=== PATIENT | male | born 1985 | race Caucasian/White ===

== ENCOUNTER 2018-09-08 19:57 | Emergency (ER) | payer MEDICAID, OTHER ==
[~2018-09-08] VITALS: Ht 167.6 cm; Wt 54.4 kg
--- NOTE | 2018-09-08 20:00 | NUR ---
Patient to ER bed 2 to gown for evaluation. Side rails up. Report given to iván.
[2018-09-08 20:01] VITALS: BP_SYST 145
--- NOTE | 2018-09-08 20:05 | NUR ---
Patient arrived via EMS for c/o seizures. Patient was getting into his car when he experienced a seizure. Patient thinks he lost consciousness. Patient has a history of seizures. Last seizre was 2 years ago. Patient non-compliant with seizure medications at home. VSS. Lenora pain, chest pain, SOB.
--- NOTE | 2018-09-08 20:08 | NUR ---
Note undone in EDM - 09/08/18 at 2020 by MARISEL Pt came in ED C/O upper RQ pain -01/19 upon inspirition, pt states she did go to the gym and performed some exercises related to the specific area. She does workout at the gym regularly. No other injuries and complaints noted VSS No s/s of acute distress. Resting on gurney with rails up
--- NOTE | 2018-09-08 20:08 | NUR ---
ER Dr. Henry at bedside examining patient.
[2018-09-08] MEDS ORDERED: LORazepam 2 MG/ML VIAL (FOR ER USE) IVP ONE (20:15)
[2018-09-08 20:44] LABS: CALCIUM 8.7 mg/dL (8.4-11.0); CREATININE 0.86 mg/dL (0.55-1.30); POTASSIUM 3.8 mmol/L (3.5-5.1)
[2018-09-08 20:49] LABS: ALBUMIN 3.7 g/dL (3.4-4.8)
[2018-09-08 21:18] VITALS: BP_SYST 145
--- NOTE | 2018-09-08 21:19 | NUR ---
Patient given written and verbal discharge instructions and verbalizes understanding. ER MD discussed with patient the results and treatment provided. Patient in stable condition. ID arm band removed. IV catheter removed intact and dressing applied, no active bleeding. Rx of ATIVAN given. Patient educated on pain management and to follow up with PMD. Pain Scale 0/10. Opportunity for questions provided and answered. Medication side effect fact sheet provided.
== END 2018-09-08 21:19 | disposition home or self-care (01) ==
LOC: SED 19:57
DX: F10.239 Alcohol dependence with withdrawal, unspecified (principal); R03.0 Elevated blood-pressure reading, without diagnosis of hypertension
CPT/HCPCS: 36415; 80053; 96374; 99283; J2060

== ENCOUNTER 2019-06-22 15:52 | Emergency (ER) | payer MEDICAID ==
[~2019-06-22] VITALS: Ht 177.8 cm; Wt 54.4 kg
[2019-06-22 16:20] VITALS: BP_SYST 121
[2019-06-22 17:52] LABS: HEMATOCRIT 43.7 % (36-54); HEMOGLOBIN 15.2 g/dL (14.0-18.0); MEAN CORPUSCULAR HEMOGLOBIN 34 pg (27-31); MEAN CORPUSCULAR HGB CONC 35 % (32-36); MEAN CORPUSCULAR VOLUME 97 fL (79.0-98.0); PLATELET COUNT (AUTO) 391 K/uL (130-430); RED BLOOD CELL COUNT(AUTO) 4.52 MIL/uL (4.2-6.2); RED CELL DISTRIBUTION WIDTH 14.2 % (9.0-15.0); WHITE BLOOD COUNT (AUTO) 3.6 K/uL (4.8-10.8)
[2019-06-22 17:59] LABS: CREATININE 0.74 mg/dL (0.55-1.30); POTASSIUM 3.2 mmol/L (3.5-5.1)
[2019-06-22 18:20] LABS: BASOPHILS % (MANUAL) 0 % (0-2); EOSINOPHILS % (MANUAL) 0 % (0-7); LYMPHOCYTES % (MANUAL) 35 % (20-46); MONOCYTES % (MANUAL) 14 % (0-11)
--- NOTE | 2019-06-22 19:00 | NUR ---
Patient called in waiting room x3; no answer.
--- NOTE | 2019-06-22 19:05 | NUR ---
Patient called in waiting room x3; no answer.
--- NOTE | 2019-06-22 19:10 | NUR ---
Patient called in waiting room x3; no answer.
== END 2019-06-22 19:00 | disposition left against medical advice (07) ==
LOC: SED 15:52
DX: Z02.89 Encounter for other administrative examinations (principal); Z53.21 Procedure and treatment not carried out due to patient leaving prior to being seen by health care provider
CPT/HCPCS: 36415; 80048; 85007; 85027